=== PATIENT | female | born 1935 | race Caucasian/White ===

== ENCOUNTER 2024-06-29 20:01 | Emergency (ER) | payer MEDICARE ==
[~2024-06-29] VITALS: Ht 162.6 cm; Wt 69.5 kg
[~2024-06-29 20:01] MED LIST: LEVO100T PO; LOVA20TA2 PO; METO1TAB14 PO
[2024-06-29 20:08] VITALS: TEMP 98.1
[2024-06-29] MEDS ORDERED: HYDR-3965 PO (21:28)
[2024-06-29 21:55] VITALS: BP 164/99; PULSE 97; RESP 16; O2SAT 93
== END 2024-06-29 21:53 | disposition home or self-care (01) ==
LOC: ER 20:01
DX: S72.402A Unspecified fracture of lower end of left femur, initial encounter for closed fracture (principal); Z79.899 Other long term (current) drug therapy; W19.XXXA Unspecified fall, initial encounter; Y93.K1 Activity, walking an animal; Y92.89 Other specified places as the place of occurrence of the external cause; Y99.8 Other external cause status
CPT/HCPCS: 29530; 73564; 99284; A6212; A6258; A6449

== ENCOUNTER 2024-09-19 09:43 | Observation (INO) | payer MEDICARE ==
[2024-09-16 11:43] LABS: BASOPHILS # (AUTO) 0.1 X10'3 (0-0.2); BASOPHILS % (AUTO) 0.6 % (0-1); EOSINOPHILS # (AUTO) 0.1 X10'3 (0-0.9); EOSINOPHILS % (AUTO) 0.9 % (0-6); HEMATOCRIT 40.6 % (35.0-45.0); HEMOGLOBIN 13.5 g/dl (12.0-16.0); LYMPHOCYTES # (AUTO) 2.3 X10'3 (1.1-4.8); LYMPHOCYTES % (AUTO) 20.3 % (21-51); MEAN CORPUSCULAR HEMOGLOBIN 30.6 PG (27.0-31.0); MEAN CORPUSCULAR HGB CONC 33.3 g/dL (33.0-36.5); MEAN PLATELET VOLUME 7.1 FL (7.4-10.4); MONOCYTES # (AUTO) 1.2 X10'3 (0-0.9); MONOCYTES % (AUTO) 10.8 % (2-12); NEUTROPHILS # (AUTO) 7.8 X10'3 (1.8-7.7); NEUTROPHILS % (AUTO) 67.4 % (42-75); PLATELET COUNT 404 X10'3 (140-440); RED BLOOD COUNT 4.41 X10'6 (4.20-5.60); RED CELL DISTRIBUTION WIDTH 13.5 % (11.5-14.5); WHITE BLOOD COUNT 11.5 X10'3 (4.5-11.0)
[2024-09-16 11:54] LABS: ALBUMIN 3.3 G/DL (3.4-5.0); ANION GAP 6 (8-16); BLOOD UREA NITROGEN 10 MG/DL (7-18); BUN/CREATININE RATIO 15.4 (10.0-20.0); CALCIUM 9.1 MG/DL (8.5-10.1); CHLORIDE 94 MMOL/L (99-107); CREATININE 0.65 MG/DL (0.40-0.90); GLUCOSE 272 MG/DL (70-104); POTASSIUM 4.8 MMOL/L (3.5-5.1); SODIUM 128 MMOL/L (135-145); TOTAL CARBON DIOXIDE 27.9 MMOL/L (24-32); eGFR 86 ML/MIN
[2024-09-16 11:59] LABS: APTT 27 SECONDS (22-32); INR 1.1 INR
[2024-09-16 12:05] LABS: PROTHROMBIN TIME 11.5 SECONDS (9.0-12.0)
[2024-09-19] VITALS (19 sets, daily range): BP systolic 109–151; BP diastolic 57–79; PULSE 73–100; RESP 16–26; TEMP 97.2–98.8; O2SAT 92–98
[~2024-09-19] VITALS: Ht 162.6 cm; Wt 67.0 kg
[2024-09-19] MEDS ORDERED: ceFAZolin 2gm in dextrose, iso 50 ML IV ONE (10:25)
[2024-09-19] MEDS ORDERED: OMEG100037 PO (11:14)
[2024-09-19] MEDS ORDERED: MAGN200T PO (11:14)
[2024-09-19] MEDS ORDERED: VITA100049 PO (11:14)
[2024-09-19] MEDS ORDERED: METF-1203 PO (11:14)
[2024-09-19] MEDS ORDERED: ERGO400C PO (11:14)
[2024-09-19] MEDS ORDERED: OMEG1CAP61 PO (11:14)
[2024-09-19] MEDS ORDERED: METO25TA6 PO (11:14)
[2024-09-19] MEDS ORDERED: ATOR40TA71 PO (11:14)
[2024-09-19 11:27] LABS: ALBUMIN 3.2 G/DL (3.4-5.0); ANION GAP 8 (8-16); BLOOD UREA NITROGEN 8 MG/DL (7-18); BUN/CREATININE RATIO 19.5 (10.0-20.0); CALCIUM 9.4 MG/DL (8.5-10.1); CHLORIDE 98 MMOL/L (99-107); CREATININE 0.41 MG/DL (0.40-0.90); GLUCOSE 202 MG/DL (70-104); POTASSIUM 4.8 MMOL/L (3.5-5.1); SODIUM 135 MMOL/L (135-145); TOTAL CARBON DIOXIDE 29.2 MMOL/L (24-32); eCRCL 82 ML/MIN; eGFR > 90 ML/MIN
[2024-09-19] MEDS ORDERED: ceFAZolin 1000mg inj ONE (11:56)
[2024-09-19] MEDS ORDERED: LIDOcaine 1% W/epiNEPHrine 1:100,000 20ml vial ONE ×3 (11:56→13:56)
[2024-09-19] MEDS ORDERED: midazolam 1 mg/ML 2ml injection ONE ×2 (11:56→13:36)
[2024-09-19] MEDS ORDERED: fentaNYL/PF 50MCG/1 ML 2ML syringe ONE (11:56)
[2024-09-19] MEDS ORDERED: diphenhydrAMINE 50 mg/ml inj ONE (13:23)
[2024-09-19] MEDS ORDERED: iohexol 350 MG/ML 50ML vial IV ONE (13:24)
[2024-09-19] MEDS ORDERED: hydrALAZINE 20mg/ml inj. IV PRN (15:40)
[2024-09-19] MEDS: VANCOMYCIN 1GM 200ML H20 (PEG) 200 ML IV ONE (16:12)
[2024-09-19] MEDS: normal saline 1000ml 1,000 ML IV SCH ×2 (16:13→18:45)
[2024-09-19] MEDS ORDERED: CEPH-585 PO (16:45)
[2024-09-19] MEDS ORDERED: temazepam 15mg capsule PO PRN (18:55)
[2024-09-19] MEDS: metoprolol tartrate 25mg tablet PO SCH (21:47)
[2024-09-19] MEDS: acetaminophen 325mg tablet PO PRN (23:03)
[2024-09-20 02:00] VITALS: BP 123/59; PULSE 76; RESP 15; TEMP 97.6; O2SAT 96
[2024-09-20 02:19] VITALS: RESP 16; O2SAT 94
[2024-09-20 06:00] VITALS: BP 147/70; PULSE 87; RESP 19; TEMP 97.4; O2SAT 91
[2024-09-20 07:15] LABS: BASOPHILS # (AUTO) 0.1 X10'3 (0-0.2); BASOPHILS % (AUTO) 0.5 % (0-1); EOSINOPHILS # (AUTO) 0.2 X10'3 (0-0.9); EOSINOPHILS % (AUTO) 1.6 % (0-6); HEMATOCRIT 36.1 % (35.0-45.0); HEMOGLOBIN 12.1 g/dl (12.0-16.0); LYMPHOCYTES # (AUTO) 2.3 X10'3 (1.1-4.8); LYMPHOCYTES % (AUTO) 22.5 % (21-51); MEAN CORPUSCULAR HEMOGLOBIN 30.8 PG (27.0-31.0); MEAN CORPUSCULAR HGB CONC 33.6 g/dL (33.0-36.5); MEAN CORPUSCULAR VOLUME 91.9 FL (78-98); MEAN PLATELET VOLUME 7.1 FL (7.4-10.4); MONOCYTES # (AUTO) 1.2 X10'3 (0-0.9); MONOCYTES % (AUTO) 11.5 % (2-12); NEUTROPHILS # (AUTO) 6.6 X10'3 (1.8-7.7); NEUTROPHILS % (AUTO) 63.9 % (42-75); PLATELET COUNT 285 X10'3 (140-440); RED BLOOD COUNT 3.93 X10'6 (4.20-5.60); RED CELL DISTRIBUTION WIDTH 13.6 % (11.5-14.5); WHITE BLOOD COUNT 10.3 X10'3 (4.5-11.0)
[2024-09-20 07:43] LABS: ALANINE AMINOTRANSFERASE 55 U/L (12-78); ALBUMIN 2.9 G/DL (3.4-5.0); ALBUMIN/GLOBULIN RATIO 0.8 (1.1-1.5); ALKALINE PHOSPHATASE 114 IU/L (46-116); ANION GAP 9 (8-16); ASPARTATE AMINO TRANSFERASE 38 U/L (10-37); BILIRUBIN,TOTAL 0.6 MG/DL (0.1-1.0); BLOOD UREA NITROGEN 9 MG/DL (7-18); BUN/CREATININE RATIO 18.8 (10.0-20.0); CALCIUM 8.6 MG/DL (8.5-10.1); CHLORIDE 96 MMOL/L (99-107); CREATININE 0.48 MG/DL (0.40-0.90); GLUCOSE 161 MG/DL (70-104); SODIUM 130 MMOL/L (135-145); TOTAL PROTEIN 6.4 G/DL (6.4-8.2); eCRCL 70 ML/MIN; eGFR > 90 ML/MIN
[2024-09-20] MEDS: OMEGA-3/DHA/EPA/FISH OIL 1 EACH CAPSULE.DR PO SCH (08:10)
[2024-09-20] MEDS: atorvastatin 20mg tablet PO SCH (08:11)
[2024-09-20] MEDS: cholecalciferol (vitamin D3) 400 unit (10mcg) tablet PO SCH (08:11)
[2024-09-20] MEDS: levoTHYROXINE 100mcg tablet PO SCH (08:11)
[2024-09-20] MEDS: magnesium oxide 400mg tablet PO SCH (08:11)
[2024-09-20] MEDS: metFORMIN 500mg tablet PO SCH (08:25)
[2024-09-20 08:30] VITALS: RESP 18; O2SAT 91
[2024-09-20 11:00] VITALS: BP 139/72; PULSE 76; RESP 12; TEMP 97; O2SAT 94
== END 2024-09-20 13:01 | disposition home or self-care (01) ==
LOC: SSTAY O 09:43 → PCU 3S 18:52
PROVIDERS: ADMIT Internal Medicine Cardiovascular Disease; ATTEND Internal Medicine Cardiovascular Disease
DX: I49.5 Sick sinus syndrome (principal); I44.7 Left bundle-branch block, unspecified; I44.1 Atrioventricular block, second degree; R94.31 Abnormal electrocardiogram [ECG] [EKG]; R00.1 Bradycardia, unspecified; R00.2 Palpitations; R42 Dizziness and giddiness; I10 Essential (primary) hypertension; E78.5 Hyperlipidemia, unspecified; E03.9 Hypothyroidism, unspecified; E11.9 Type 2 diabetes mellitus without complications; Z79.899 Other long term (current) drug therapy; Z86.2 Personal history of diseases of the blood and blood-forming organs and certain disorders involving the immune mechanism
CPT/HCPCS: 33208; 36415; 71046; 80048; 80053; 82948; 85025; 85610; 85730; 87081; 93005; 96365; 96366; C1785; C1898; G0378; J0690; J1200; J2250; J3010; J3372; J3490; J7030; 99152; 99153; A4565; A6449; Q9967